=== PATIENT | female | born 1960 | race Caucasian/White ===

== ENCOUNTER 2017-04-17 11:38 | Day surgery (SDC) | payer MEDICAID ==
[~2017-04-17 11:38] MED LIST: Buffered Lidocaine 0.9% SYRIN* 5 ML/SYR SYRINGE INTRADERM ONE; Dexamethasone IV* 4 MG/ML 1 ML (4 MG) IV SLOW PU ONE; Famotidine IV* 10 MG/ML 2 ML (20 mg) IV ONE
[2017-04-17] MEDS ORDERED: Dexamethasone IV* 4 MG/ML 1 ML (4 MG) ONE ×4 (11:58→12:47)
[2017-04-17] MEDS ORDERED: Famotidine IV* 10 MG/ML 2 ML (20 mg) ONE ×4 (11:58→12:47)
[2017-04-17] MEDS ORDERED: ceFAZolin 2 GM PREMIX (*) 2 GM/50 ML BAG IVPB ONE ×2 (12:33)
[2017-04-17] MEDS ORDERED: fentaNYL* 50 MCG/ML 2 ML VIAL (100 MCG VIAL) ONE ×2 (12:35)
[2017-04-17] MEDS ORDERED: Midazolam* 1 MG/ML 2 ML VIAL (2 MG) ONE ×4 (12:36→14:58)
[2017-04-17] MEDS ORDERED: Ketorolac INJ* 30 MG/ML 1 ML VIAL ONE ×2 (12:36)
[2017-04-17] MEDS ORDERED: Ondansetron INJ* 2 MG/ML VIAL ONE ×2 (12:36)
[2017-04-17] MEDS ORDERED: Propofol* 10 MG/ML 20 ML BTL IV PUSH ONE ×2 (12:36)
[2017-04-17] MEDS ORDERED: ROPIVACAINE 5 MG/ML 30 ML BTL (0.5%) ONE ×2 (12:38)
[2017-04-17] MEDS ORDERED: Bupivacaine 0.25% SDV* 30 ML ONE (13:27)
[2017-04-17] MEDS ORDERED: Lidocaine 2% PF * 5 ML VIAL ONE ×2 (15:04)
[2017-04-17 16:45] VITALS: BP 138/72
--- NOTE | 2017-04-19 17:27 | OP ---
DATE OF OPERATION: 04/17/17 - [facility] DATE OF : 60 SURGEON: Chau Escalante MD FLARER: LUZ MARINA Resendiz. An social worker assistant was needed for the entirety of the procedure to aid in positioning of the arm and retraction. ANESTHESIOLOGIST: Dr. Collado. ANESTHESIA: General plus infraclavicular nerve block. 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 OPERATIVE PROCEDURE: 1. Fractional lengthening, right flexor digitorum superficialis tendons, right forearm. 2. Fractional lengthening, right flexor digitorum profundus tendons, right forearm. 3. Fractional lengthening, right flexor carpi radialis tendon, right forearm. 4. Transfer of the flexor carpi ulnaris tendon to the extensor digitorum communis tendon, right forearm. 5. Fractional lengthening of the right flexor pollicis longus tendon, right forearm. INDICATIONS: Yudith has had significant contractures that have said in and are stable. 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 Additionally, she has a weak slight extension in the finger extensors. I have seen her in the office and measured a Tyson angle and talked to her about her options. She had recently got some Botox injections and was very pleased with the results of the Botox injection and now opened up the hand and made it easier for her to perform hygiene on the hand and adjusted hand in generally much better position. I talked to her about the limitations of surgery and certainly I cannot give her normal and I think that we can put the hand in a better position and make easier to use. She understood this and elected to proceed. ESTIMATED BLOOD LOSS: 5 mL. COMPLICATIONS: None. FINDINGS: As expected. DESCRIPTION OF PROCEDURE: Yudith was seen in the preoperative holding area. The correct side, site, and procedure were identified. We came back to the operating room and the arm was prepped and draped in the usual fashion. A time- out was performed. Prior to prepping and draping the arm, she had received a peripheral block and infraclavicular nerve block. I began by exsanguinating the arm with the Esmarch and the tourniquet was inflated to 250 mmHg. Dissection was carried down. A volar incision was made just over the palmaris longus tendon over the middle third of the forearm. This was brought back in South type fashion ulnarly and then back to the wrist flexion crease more centrally. Dissection was carried down with the Bovie and her superficial veins were all cauterized. The fascia was then opened up. The palmaris longus tendon was retracted radially. The FDS tendons were encountered. I then performed fractional lengthening of the FDS index finger tendon starting 2 cm proximal to the musculotendinous junction and then another centimeter proximal to that, I made a second oblique incision through the tendon for fractional lengthening. I then performed a fractional lengthening of the FDS tendon to the middle finger in the exact same fashion. I then did this for the ring finger and finding for the small finger. All of the tendons opened up nicely when I brought fingers down to extension. I then retracted out the FDS radially and exposed the FDP tendons. In similar fashion, I began with the FDP of the index finger and came 2 cm proximal to the musculotendinous junction. I then performed a tenotomy that location and then came another 1 cm to proximal to that and performed a second tenotomy for fractional lengthening. In similar fashion, I then did a fascial lengthening of the middle finger FDP tendon followed by the ring and then the small finger FDP tendons. I then came more superficial and I opened up the FCR tendon sheath, I retracted this ulnarly. This brought me down on to the FPL. I mobilized the FPL tendon. I then came 2 cm proximal to the musculotendinous junction and made an oblique tenotomy there and then a couple of centimeters proximal to that, a second oblique tenotomy. The FPL musculotendinous junction lengthened nicely. This brought all the fingers and thumb out to full extension with the wrist fully extended. I then came ulnarly and released from FCU tendon right on its insertion to the pisiform. This was mobilized, now the adhesions were released well up into the forearm until I had increased excursion of the muscle. I then came dorsally and made a 5 to 8 cm incision over the fourth dorsal compartment tendons just proximal to the extensor retinaculum. Dissection was carried down. The fascia was opened to expose the tendons. The EIP tendon was from all of these. The normal cascade was set and then all 4 of these tendons were sutured with a 3-0 Ethibond suture together into 1 tendon. I then created a subcutaneous tunnel just superficial to the fascia, but deep to all the sensory nerves and veins. The tendon passer was used to retrieve the FCU tendon and pulled this into the dorsal wound. I then used a tendon gerardo to perform a Pulvertaft weave using the FCU into the EDC tendons. The wrist was positioned at 30 degrees of extension. Fingers were brought into full extension, but not hyperextension. The transfer was secured. I then checked the tension and I thought it was bit too tight, so I relaxed it just a bit and then resutured it in place. At this point, I had very nice tenodesis effect and I thought a very nice tension on the tendon transfer. I went ahead and irrigated out this dorsal wound and the skin that was closed with 3- 0 Vicryl followed by 3-0 Monocryl suture and Steri-Strips. I then came volar and looked at everything, and ultimately I decided I did not want her to have recurrence of a wrist flexion contracture and so I performed a fractional lengthening of the FCR tendon in similar fashion. Everything at this point was looking good and was nicely mobile and so I went ahead and irrigated out all the wounds. The subcutaneous tissue was reapproximated with 3-0 Vicryl suture. The skin was closed with 3-0 Monocryl suture and Steri-Strips. The wounds were dressed with 4x4s, sterile Webril, and a volar wrist splint was applied, holding the wrist and 30 degrees of extension in the fingers and thumb in full extension at the IP joints. Tourniquet was deflated and the hand pinked up immediately. She was then woken up and taken to the recovery room in stable condition. [id number]/[facility] #: [id number] [place]
== END 2017-04-17 16:46 | disposition home or self-care (01) ==
LOC: OREAST 11:38
PROVIDERS: ATTEND Orthopaedic Surgery Hand Surgery
DX: I69.398 Other sequelae of cerebral infarction (principal); M24.541 Contracture, right hand; M24.531 Contracture, right wrist; G81.11 Spastic hemiplegia affecting right dominant side; E11.9 Type 2 diabetes mellitus without complications; Z79.84 Long term (current) use of oral hypoglycemic drugs; I10 Essential (primary) hypertension; E78.5 Hyperlipidemia, unspecified; Z87.891 Personal history of nicotine dependence; E66.9 Obesity, unspecified; Z68.32 Body mass index [BMI] 32.0-32.9, adult
CPT/HCPCS: J0690; J1100; J1885; J2250; J2405; J2704; J2795; J3010